=== PATIENT | female | born 1945 | race Caucasian/White ===

== ENCOUNTER → 2016-10-05 | Outpatient (CLI) | payer MEDICARE ==
--- NOTE | 2016-10-08 07:12 | MM ---
Reason for exam: screening (asymptomatic). Last mammogram was performed 1 year and 2 months ago. History: Patient is postmenopausal and had first child at age 33. Family history of breast cancer in paternal cousin at age 40. Benign right breast aspiration of the right breast, July 27, 2013. Benign cyst aspiration of the left breast, May 13, 1998. Benign cyst aspiration of the left breast, May 10, 1998. Benign excisional biopsy of the right breast, 1997. Took hormonal contraceptives for 15 years beginning at age 20. Physical Findings: A clinical breast exam by your physician is recommended on an annual basis and results should be correlated with mammographic findings. MG 3D Screening Mammo W/Cad Bilateral CC and MLO view(s) were taken. Prior study comparison: July 21, 2015, right breast MG 3d work up w/cad RT. July 19, 2015, bilateral MG screening mammo w CAD. The breast tissue is heterogeneously dense. This may lower the sensitivity of mammography. Focal asymmetry in the right breast is stable. No significant changes when compared with prior studies. ASSESSMENT: Benign, BI-RAD 2 RECOMMENDATION: Routine screening mammogram of both breasts in 1 year.
== END | disposition home or self-care (01) ==
LOC: RADMAMWWP 07:52
PROVIDERS: ATTEND Obstetrics & Gynecology
DX: Z12.31 Encounter for screening mammogram for malignant neoplasm of breast (principal)
CPT/HCPCS: 77063; G0202

== ENCOUNTER → 2017-11-26 | Outpatient (CLI) | payer MEDICARE ==
[2017-11-26 08:43] VITALS: BP 159/79; PULSE 77; RESP 18; TEMP 98.2; BMI 34.4
--- NOTE | 2017-11-26 09:42 | P.HPOB ---
History of Present Illness H&P Date: 11/26/17 Chief Complaint: The patient is here for her routine gynecologic exam and mammogram. This is a 71-year-old with an LMP of 1995. The patient is here to establish with this office. She states her last pelvic exam was one year ago and she had a normal Pap smear at that time. She was previously seen at [facility]. The patient is without gynecologic complaints and denies any postmenopausal bleeding. Review of Systems Weight has been stable. She denies respiratory, cardiac, or G.I. problems. She denies maltreatment or falling. She denies any significant problems with urinary leakage. Past Medical History Past Medical History: Hyperlipidemia, Osteoarthritis (OA), Thyroid Disorder Additional Past Medical History / Comment(s): diverticulosis History of Any Multi-Drug Resistant Organisms: None Reported Past Surgical History: Bowel Resection, Orthopedic Surgery Additional Past Surgical History / Comment(s): lt knee arthroscopic, left knee replacement Past Anesthesia/Blood Transfusion Reactions: Motion Sickness Past Psychological History: No Psychological Hx Reported Smoking Status: Never smoker Past Alcohol Use History: None Reported Past Drug Use History: None Reported - Past Family History Mother Sister(s) Family Medical History: Cancer Additional Family Medical History / Comment(s): Non hodgekin's Lymphoma Father Family Medical History: Myocardial Infarction ([place]) Additional Family Medical History / Comment(s): thrombosis to heart Mother Family Medical History: Cancer (Cervical cancer), CVA/TIA Additional Family Medical History / Comment(s): cervical cancer Sister(s) Family Medical History: Cancer (Non-Hodgkin's lymphoma) Medications and Allergies Home Medications Medication Instructions Recorded Confirmed Type Atorvastatin [Lipitor] 20 mg PO DAILY 07/09/16 11/26/17 History Krill Oil 1,000 mg PO DAILY 07/09/16 11/26/17 History Levothyroxine Sodium 150 mcg PO QAM 07/09/16 11/26/17 History [Levothyroxine Sodium] Multivit-Min/Iron/Folic/Lutein 1 tab PO DAILY 07/09/16 11/26/17 History [Centrum Silver Women Tablet] Aspirin 325 mg PO BID #60 tab 07/14/16 11/26/17 Rx Allergies Allergy/AdvReac Type Severity Reaction Status Date / Time No Known Allergies Allergy Verified 07/12/16 11:12 Exam - Vital Signs Vital signs: Vital Signs Temp Pulse Resp BP 11/26/17 08:36 98.2 F 77 18 159/79 Intake and Output 11/25/17 11/26/17 11/26/17 22:59 06:59 14:59 Other: Weight 74.843 kg Patient Weight 11/27/17 06:59 Weight 74.843 kg This is a well-developed well-nourished white female who is alert and oriented times 3 in no acute distress. BMI 34. HEENT: Within normal limits. NECK: Supple without mass or thyromegaly. CHEST AND LUNGS: Clear to auscultation. HEART: Regular rate and rhythm. BREASTS: Are without mass or discharge. AXILLARY EXAM: Negative for adenopathy. BACK: Negative for CVA tenderness. ABDOMEN: Obese. Soft, nontender, without palpable masses. PELVIC EXAM: Normal external genitalia with mild to moderate atrophy. Cervix and vagina appear normal with mild to moderate atrophy. There is no unusual discharge. There is no evidence of prolapse. The uterus is midposition, nongravid size and nontender. There are no palpable adnexal masses or tenderness. RECTAL EXAM: recto vaginal exam is negative for mass or tenderness and is negative for occult blood. EXTREMITIES: Nontender. IMPRESSION: 1. 71-year-old menopausal female with normal gynecologic exam 2. Elevated blood pressure. PLAN: 1. Pap smear was deferred since the patient states she had a normal one last year. We will obtain records from [facility] for her last Pap smear. 2. Self breast examination was discussed. 3. Screening mammogram will be done today. 4. Osteoporosis prevention was discussed. We'll plan on repeating bone density test next year. She states she had a normal one about 6 years ago. 5. The patient's elevated blood pressure was discussed. I've recommended that she do regular self blood pressure checks. She is to follow up with Dr. Conley for elevated blood pressures. 6. She will return in one year. 7. She did receive a flu shot last fall.
--- NOTE | 2017-11-26 09:48 | P.PN ---
Progress Note - Text Progress Note Date: 11/26/17 Past Pap smear from 06/29/2015 was obtained from [facility]. That Pap smear was negative. Pap smear will be repeated in one year.
--- NOTE | 2017-11-28 10:44 | MM ---
Reason for exam: screening (asymptomatic). Last mammogram was performed 1 year and 2 months ago. History: Patient is postmenopausal and had first child at age 33. Family history of breast cancer in paternal cousin at age 40. Benign right breast aspiration of the right breast, July 27, 2013. Benign cyst aspiration of the left breast, May 13, 1998. Benign cyst aspiration of the left breast, May 10, 1998. Benign excisional biopsy of the right breast, 1997. Took hormonal contraceptives for 15 years beginning at age 20. Physical Findings: A clinical breast exam by your physician is recommended on an annual basis and results should be correlated with mammographic findings. MG 3D Screening Mammo W/Cad Bilateral CC and MLO view(s) were taken. Prior study comparison: October 05, 2016, bilateral MG 3d screening mammo w/cad. July 21, 2015, right breast MG 3d work up w/cad RT. The breast tissue is extremely dense which could obscure a lesion on mammography. No significant changes when compared with prior studies. ASSESSMENT: Benign, BI-RAD 2 RECOMMENDATION: Routine screening mammogram of both breasts in 1 year.
== END | disposition home or self-care (01) ==
LOC: WWCWWP 08:21
PROVIDERS: ATTEND Obstetrics & Gynecology
DX: Z12.31 Encounter for screening mammogram for malignant neoplasm of breast (principal)
CPT/HCPCS: 77063; 77067

== ENCOUNTER → 2019-02-24 | Outpatient (CLI) | payer MEDICARE ==
[2019-02-24 14:03] VITALS: BP 164/85; PULSE 69; RESP 16; TEMP 98.3; BMI 34.2
--- NOTE | 2019-02-24 14:46 | P.HPOB ---
History of Present Illness H&P Date: 02/24/19 Chief Complaint: The patient is here for her routine gynecologic exam and ma mmogram. This is a 73-year-old with an LMP of 1995. The patient is without an ecologic complaints and denies any postmenopausal bleeding. Review of Systems Weight has been stable. She denies respiratory, cardiac and G.I. problems. She denies maltreatment or problems with falling. : she denies any significant problems with urinary leakage. Past Medical History Past Medical History: Hyperlipidemia, Osteoarthritis (OA), Thyroid Disorder Additional Past Medical History / Comment(s): diverticulosis. Hypothyroid. History of Any Multi-Drug Resistant Organisms: None Reported Past Surgical History: Bowel Resection, Orthopedic Surgery Additional Past Surgical History / Comment(s): lt knee arthroscopic, left knee replacement. Last Colonoscopy 2018(next after 3 yrs). Past Anesthesia/Blood Transfusion Reactions: Motion Sickness Past Psychological History: No Psychological Hx Reported Smoking Status: Never smoker Past Alcohol Use History: Occasional (6 per month) Past Drug Use History: None Reported Additional History: She is . She enjoys traveling. - Past Family History Mother Sister(s) Family Medical History: Cancer, Dementia Additional Family Medical History / Comment(s): Non hodgekin's Lymphoma Father Family Medical History: Myocardial Infarction ([place]) Additional Family Medical History / Comment(s): thrombosis to heart Mother Family Medical History: Cancer, CVA/TIA Additional Family Medical History / Comment(s): cervical cancer Sister(s) Family Medical History: Cancer Medications and Allergies Home Medications Medication Instructions Recorded Confirmed Type Atorvastatin [Lipitor] 20 mg PO DAILY 07/09/16 02/24/19 History Krill Oil 1,000 mg PO DAILY 07/09/16 02/24/19 History Levothyroxine Sodium 150 mcg PO QAM 07/09/16 02/24/19 History Multivit-Min/Iron/Folic/Lutein 1 tab PO DAILY 07/09/16 02/24/19 History [Centrum Silver Women Tablet] Aspirin 325 mg PO 02/24/19 02/24/19 History Allergies Allergy/AdvReac Type Severity Reaction Status Date / Time No Known Allergies Allergy Verified 02/24/19 14:03 Exam Vital Signs Temp Pulse Resp BP Pulse Ox 02/24/19 13:58 98.3 F 69 16 164/85 97 Intake and Output 02/23/19 02/24/19 02/24/19 22:59 06:59 14:59 Other: Weight 74.389 kg Height 4'10", weight 164 pounds, BMI 34.3. This is a well-developed well-nourished short statured white female who is alert and oriented times 3 in no acute distress. HEENT: Within normal limits. NECK: Supple without mass or thyromegaly. CHEST AND LUNGS: Clear to auscultation. HEART: Regular rate and rhythm. BREASTS: Are without mass or discharge. AXILLARY EXAM: Negative for adenopathy. BACK: Negative for CVA tenderness. ABDOMEN: Soft, obese, nontender, without palpable masses. PELVIC EXAM: Normal external genitalia with mild to moderate atrophy. Cervix and vagina appear normal with mild to moderate atrophy. There is no unusual dischar ge. There is no evidence of prolapse. The uterus is midposition, nongravid size and nontender. There are no palpable adnexal masses or tenderness. RECTAL EXAM: rectovaginal exam is negative for mass or tenderness and is negative for occult blood. EXTREMITIES: Nontender. IMPRESSION: 1. 73-year-old menopausal female with normal gynecologic exam. 2. Elevated blood pressure with history of chronic hypertension. PLAN: 1. Pap smear was performed. Her last one was negative on 07/01/2015. If 2 additional Pap smears are negative within a 10 year period, we will consider discontinuing Pap smears. The 2015 Pap smear is the only other Pap smear that is confirmed. 2. Self breast awareness was discussed with the patient. 3. Screening mammogram will be done today. 4. Osteoporosis prevention was discussed. I have stressed the importance of adequate calcium, vitamin D and regular exercise. Recommended amounts of calcium and vitamin D were also discussed. Bone density screening will be done today. She believes her last one was about 10 years ago. 5. She does get flu shots in the fall. 6. I have recommended that she check your blood pressure regularly and follow- up with Dr. Conley for blood pressure elevations. 7. She will return in one to 2 years for her well woman examination.
--- NOTE | 2019-02-25 09:29 | BD ---
EXAMINATION TYPE: Axial Bone Density DATE OF EXAM: 02/24/2019 COMPARISON: 08/16/2004 CLINICAL HISTORY: Postmenopausal female. Osteoporosis screening. Height: Weight: FRAX RISK QUESTIONS: Alcohol (3 or more units per day): no Family History (Parent hip fracture): no Glucocorticoids (More than 3mos): no (Ex: prednisone, prednisolone, methylprednisolone, dexamethasone, and hydrocortisone). History of Fracture in Adulthood: yes Secondary Osteoporosis: 1. Type 1 Diabetes: no 2. Hyperthyroidism: no 3. Menopause before 45: no 4. Malnutrition: no 5. Chronic liver disease: no Rheumatoid Arthritis: no Current Tobacco Use: no RISK FACTORS HISTORY OF: History of Wrist Fracture: right When: 23 years ago Family History of Osteoporosis: no Active: yes Diet low in dairy products/other sources of calcium: no Postmenopausal woman: age 50 Lost more than 2 inches in height since high school: no MEDICATIONS: cholesterol meds, vitamins, fish oil Thyroid Medications: levothyroxine How Lon years Additional History: EXAM MEASUREMENTS: Bone mineral densitometry was performed using the [employer] System. Bone mineral density as measured about the Lumbar spine is: ----- L1-L4(G/cm2): 1.175 T Score Values are as follows: ----- L2: 0.2 ----- L3: 0.0 ----- L4: 0.0 ----- L1-L4: 0.0 Bone mineral density has: increased 3.2 % since study of: 08.16.2004 Bone mineral density about the R hip (g/cm2): 0.935 Bone mineral density about the L hip (g/cm2): 0.895 T Score values are as follows: -----R Neck: -0.7 -----L Neck: -1.0 -----R Total: -0.3 -----L Total: 0.2 Bone mineral density has: decreased -4.4 % since study of: 08.16.2004 IMPRESSION: Normal (Values between +1 and -1 indicate normal bone mass). Values are borderline for osteopenia. Co nsider repeating this study in 5 years or sooner if there is some new clinical indication. NOTE: T-SCORE=SD OF THE YOUNG ADULT MEAN.
--- NOTE | 2019-02-25 10:33 | MM ---
Reason for exam: screening (asymptomatic). Last mammogram was performed 1 year and 3 months ago. History: Patient is postmenopausal and had first child at age 33. Family history of breast cancer in paternal cousin at age 40. Benign right breast aspiration of the right breast, July 27, 2013. Benign cyst aspiration of the left breast, May 13, 1998. Benign cyst aspiration of the left breast, May 10, 1998. Benign excisional biopsy of the right breast, 1997. Took hormonal contraceptives for 15 years beginning at age 20. Physical Findings: A clinical breast exam by your physician is recommended on an annual basis and results should be correlated with mammographic findings. MG 3D Screening Mammo W/Cad Bilateral CC and MLO view(s) were taken. Prior study comparison: November 26, 2017, bilateral MG 3d screening mammo w/cad. October 05, 2016, bilateral MG 3d screening mammo w/cad. The breast tissue is heterogeneously dense. This may lower the sensitivity of mammography. No significant new finding when compared with prior studies. ASSESSMENT: Benign, BI-RAD 2 RECOMMENDATION: Routine screening mammogram of both breasts in 1 year.
== END ==
LOC: WWCWWP 13:48
PROVIDERS: ATTEND Obstetrics & Gynecology
DX: Z12.31 Encounter for screening mammogram for malignant neoplasm of breast (principal); Z13.820 Encounter for screening for osteoporosis; Z78.0 Asymptomatic menopausal state
CPT/HCPCS: 77063; 77067; 77080